=== PATIENT | male | born 1940 | race Caucasian/White ===

== ENCOUNTER 2020-03-21 16:06 | Emergency (ER) | payer MEDICARE, SELFPAY ==
[2020-03-21 16:08] VITALS: BMI 21.6
[2020-03-21 16:13] VITALS: BP 130/67; PULSE 72; RESP 16; TEMP 37.2; O2SAT 93
--- NOTE | 2020-03-21 16:22 | XR_ITS ---
WS: [id number] XR chest 1V portable [id number] REASON FOR EXAM: fever FINDINGS: There is now evidence of a stent in the region of the mitral valve. The heart is not enlarged. 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 Sternotomy findings are noted. The lung onofre are well aerated. XR/XR chest 1V portable [id number] IMPRESSION: Postoperative changes with a stent in the region of the mitral valve. Coronary bypass changes Arteriosclerotic changes
--- NOTE | 2020-03-21 16:23 | ECG_ITS ---
Measurements Intervals [place] Rate: 68 P: 9 MS: 245 QRS: 140 QRSD: 172 T: 43 QT: 490 QTc: 524 SINUS RHYTHM WITH FIRST DEGREE AV BLOCK LEFT ATRIAL ENLARGEMENT [-0.15mV P WAVE IN V1/V2] RIGHT AXIS DEVIATION [QRS AXIS > 100] RIGHT BUNDLE BRANCH BLOCK [120+ ms QRS DURATION, UPRIGHT V1, 40+ ms S IN I/ I/aVL/V4/V5/V6] No previous ECG available for comparison Electronically Signed On 03-22-2020 17:01:41 CDT by Chris Ann M.D. [id number] li
--- NOTE | 2020-03-21 16:23 | W.ED.GENADLT ---
Documented by User: Lyndon Treviño DO 03/21/20 16:26 HPI - General Adult General: Chief complaint: General Medical Stated complaint: HEAT EXHAUSTION Time Seen by Provider: 03/21/20 16:09 History of Present Illness: HPI narrative: Patient states that he believes he get too hot wall brush [place]. Symptoms first started when the patient was done yesterday. He states that when he finished he felt shaky and somewhat lightheaded. Patient fell findings warning so went out to brush hog in. Again when he finished he was shaky and off balance and severely weak. Patient did not drink much liquid yesterday or today. Onset (ago): day(s) (2) Review of Systems General: Reports: 10 or more systems reviewed and unremarkable except in HPI and below Neuro: Reports: weakness in extremities and dizziness PFS ED PFSH: Social History Smoking and tobacco status: never smoked Physical Exam Const: COMMON NORMALS: patient oriented x3 HENMT: COMMON NORMALS: normocephalic and atraumatic; oral mucous membranes not moist HEAD & SCALP: normocephalic and atraumatic Neck/C-Spine: COMMON NORMALS: full ROM, no meningeal signs and no JVD Resp: COMMON NORMALS: normal respiratory effort, No retractions, No use of accessory muscles and clear to auscultation bilaterally AUSCULTATION: clear to auscultation bilaterally Cardio: COMMON NORMALS: no JVD, regular rate and regular rhythm RATE: regular rate RHYTHM: regular rhythm GI: COMMON NORMALS: Normal to inspection, nondistended, normoactive bowel sounds present, Soft to palpation, non-tender, No hepatosplenomegaly present, no masses and no bruits PALPATION: Yes Soft to palpation and Yes No hepatosplenomegaly present Extremity: COMMON NORMALS: normal to inspection, full ROM, no joint enlargement, no clubbing, cyanosis or edema and no pedal edema Neuro: COMMON NORMALS: patient oriented x3 MENINGEAL SIGNS: Yes no meningeal signs Skin: COMMON NORMALS: no rashes or lesions noted, turgor normal, no jaundice and no mottling GENERAL SKIN EXAM: no rashes or lesions noted and turgor normal Course Vital Signs: Vital signs: Vital Signs Temperature 98.9 F 03/21/20 16:13 Pulse Rate 72 03/21/20 16:13 Respiratory Rate 16 03/21/20 16:13 Blood Pressure 130/67 03/21/20 16:13 Pulse Oximetry 93 03/21/20 16:13 [facility] - General Adult Lab Data: Labs: Lab Results 03/21/20 03/21/20 03/21/20 Range/Units 16:23 16:30 16:30 WBC 11.7 H (4.0-10.0) 10^3/ uL RBC 4.13 (4.1-5.3) 10^6/u L Hgb 13.8 (11.7-16.6) g/dL Hct 41.6 L (42.0-52.0) % MCV 100.7 H (80-94) fL MCH 33.4 (28.0-34.0) pg MCHC 33.2 (30.0-36.0) g/dL RDW 17.5 H (12.1-15.1) % Plt Count 141 (130-400) 10^3/c mm MPV 9.0 (7.4-10.4) fL Neut % (Auto) 72.5 % Lymph % (Auto) 6.0 % [place] % (Auto) 19.5 % Eos % (Auto) 0.3 % Baso % (Auto) 0.4 % Neut # (Auto) 8.4 H (1.8-7.7) 10^3/u L Lymph # (Auto) 0.7 L (0.8-4.8) 10^3/u L Tr[place]ble # (Auto) 2.3 H (0.2-0.9) 10^3/u L Eos # (Auto) 0.0 (0.0-0.8) 10^3/u L Baso # (Auto) 0.1 (0.0-0.1) 10^3/u L Nucleated RBC % (a uto) 0 % Nucleated RBCs # 0.0 /100WBC PT 16.10 H (10.5-13.3) SECO NDS INR 1.25 H (0.8-1.2) Sodium (136-145) mmol/L Potassium (3.5-5.1) mmol/L Chloride (98-107) mmol/L Carbon Dioxide (22-29) mmol/L Anion Gap (5-19) BUN (8-23) mg/dL Creatinine (0.7-1.2) mg/dL Glucose (65-115) mg/dL Calculated Osmolal ity (285-295) mOsm/k g Lactate (0.5-2.2) mmol/L Calcium (8.5-10.5) mg/dL Total Bilirubin (0.15-1.2) mg/dL AST (0-40) U/L ALT (0-41) U/L Alkaline Phosphata se (40-130) IU/L Creatine Kinase (39-308) U/L Troponin T Baselin e (0-15) ng/mL NT-Pro-B Natriuret Pep (0-450) pg/mL Total Protein (6.6-8.7) g/dL Albumin (3.5-5.2) g/dL Globulin (1.3-4.6) g/dL Urine Color Yellow (Yellow) Urine Appearance Clear (CLEAR) Urine pH 5 (5-7) Ur Specific Gravit y 1.010 (1.005-1.030) Urine Protein Neg (Negative) Urine Glucose (UA) Norm (Normal) Urine Ketones Negative (Negative) Urine Blood Neg (Negative) Urine Nitrate Negative (Negative) Urine Bilirubin Neg (NEGATIVE) Urine Urobilinogen 1 H (Negative) mg/dL Ur Leukocyte Yamilet ase Negative (Negative) 03/21/20 03/21/20 03/21/20 Range/Units 16:30 16:30 16:30 WBC (4.0-10.0) 10^3/ uL RBC (4.1-5.3) 10^6/u L Hgb (11.7-16.6) g/dL Hct (42.0-52.0) % MCV (80-94) fL MCH (28.0-34.0) pg MCHC (30.0-36.0) g/dL RDW (12.1-15.1) % Plt Count (130-400) 10^3/c mm MPV (7.4-10.4) fL Neut % (Auto) % Lymph % (Auto) % [place] % (Auto) % Eos % (Auto) % Baso % (Auto) % Neut # (Auto) (1.8-7.7) 10^3/u L Lymph # (Auto) (0.8-4.8) 10^3/u L Tr[place]ble # (Auto) (0.2-0.9) 10^3/u L Eos # (Auto) (0.0-0.8) 10^3/u L Baso # (Auto) (0.0-0.1) 10^3/u L Nucleated RBC % (a uto) % Nucleated RBCs # /100WBC PT (10.5-13.3) SECO NDS INR (0.8-1.2) Sodium 135 L (136-145) mmol/L Potassium 4.2 (3.5-5.1) mmol/L Chloride 96 L (98-107) mmol/L Carbon Dioxide 27 (22-29) mmol/L Anion Gap 16.2 (5-19) BUN 21 (8-23) mg/dL Creatinine 1.4 H (0.7-1.2) mg/dL Glucose 105 (65-115) mg/dL Calculated Osmolal ity 277 L (285-295) mOsm/k g Lactate 1.0 (0.5-2.2) mmol/L Calcium 9.1 (8.5-10.5) mg/dL Total Bilirubin 2.2 H (0.15-1.2) mg/dL AST 25 (0-40) U/L ALT 20 (0-41) U/L Alkaline Phosphata se 73 (40-130) IU/L Creatine Kinase 35 L (39-308) U/L Troponin T Baselin e 69 H (0-15) ng/mL NT-Pro-B Natriuret Pep 3153 H (0-450) pg/mL Total Protein 6.7 (6.6-8.7) g/dL Albumin 3.9 (3.5-5.2) g/dL Globulin 2.8 (1.3-4.6) g/dL Urine Color (Yellow) Urine Appearance (CLEAR) Urine pH (5-7) Ur Specific Gravit y (1.005-1.030) Urine Protein (Negative) Urine Glucose (UA) (Normal) Urine Ketones (Negative) Urine Blood (Negative) Urine Nitrate (Negative) Urine Bilirubin (NEGATIVE) Urine Urobilinogen (Negative) mg/dL Ur Leukocyte Yamilet ase (Negative) Discharge Plan Discharge Patient Disposition: Left Against Medical Advice Condition: Stable Prescriptions: No Action amiodarone 200 mg tablet 200 mg PO DAILY RF: 0 clopidogrel 75 mg Tablet 75 mg PO DAILY RF: 0 Fish Oil 300-1,000 mg Capsule,Delayed Release(Dr/Ec) 1 cap PO DAILY RF: 0 potassium chloride 20 mEq Tablet Extended Release 20 meq PO DAILY RF: 0 apple cider vinegar 500 mg Tablet 500 mg PO DAILY RF: 0 Discharge Orders: Discharge Order (Routine); Ordered 03/21/20 Ordered By: Roque Rose Referrals: Kati Negron LANDING WORKER [Primary Care Provider] - 4-7 days Patient Instructions: Weakness (ED) Activity Restrictions/Additional Instructions: Return immediately to the emergency department for dizziness, generalized weakness, chest discomfort, shortness of breath, other concerning symptoms. Coding Level of Care Code ED Wedding Designer for Chg Fwd Exam Comprehensive Documented by User: Roque Rose DO 03/21/20 18:10 HPI - General Adult General: Chief complaint: General Medical Stated complaint: HEAT EXHAUSTION Time Seen by Provider: 03/21/20 16:09 [facility] ED PFSH: Social History Smoking and tobacco status: never smoked Course Vital Signs: Vital signs: Vital Signs Temperature 98.9 F 03/21/20 16:13 Pulse Rate 72 03/21/20 16:13 Respiratory Rate 16 03/21/20 16:13 Blood Pressure 130/67 03/21/20 16:13 Pulse Oximetry 93 03/21/20 16:13 MDM - General Adult MDM Narrative: Medical decision making narrative: 80-year-old gentleman checked out to me to by Dr. Andrews at shift change. He evidently had some shortness of breath and generalized weakness following brush talking today. His symptoms are resolved now. He states he is feeling better all the time. He asked to go home. On review of his laboratory, his first troponin is mildly elevated, and his BNP is elevated as well. This patient has a history of valvular heart disease, with a valve place at [facility] in October. He does not have a history of coronary disease however. His chest x-ray does not show overt failure. His symptoms are improved, and he is asking to go home. I discussed observation admission with the patient, and to follow his troponins because of his history. He states that he would rather go home. He is going to sign a AMA form. Lab Data: Labs: Lab Results 03/21/20 03/21/20 03/21/20 Range/Units 16:23 16:30 16:30 WBC 11.7 H (4.0-10.0) 10^3/ uL RBC 4.13 (4.1-5.3) 10^6/u L Hgb 13.8 (11.7-16.6) g/dL Hct 41.6 L (42.0-52.0) % MCV 100.7 H (80-94) fL MCH 33.4 (28.0-34.0) pg MCHC 33.2 (30.0-36.0) g/dL RDW 17.5 H (12.1-15.1) % Plt Count 141 (130-400) 10^3/c mm MPV 9.0 (7.4-10.4) fL Neut % (Auto) 72.5 % Lymph % (Auto) 6.0 % [place] % (Auto) 19.5 % Eos % (Auto) 0.3 % Baso % (Auto) 0.4 % Neut # (Auto) 8.4 H (1.8-7.7) 10^3/u L Lymph # (Auto) 0.7 L (0.8-4.8) 10^3/u L Tr[place]ble # (Auto) 2.3 H (0.2-0.9) 10^3/u L Eos # (Auto) 0.0 (0.0-0.8) 10^3/u L Baso # (Auto) 0.1 (0.0-0.1) 10^3/u L Nucleated RBC % (a uto) 0 % Nucleated RBCs # 0.0 /100WBC PT 16.10 H (10.5-13.3) SECO NDS INR 1.25 H (0.8-1.2) Sodium (136-145) mmol/L Potassium (3.5-5.1) mmol/L Chloride (98-107) mmol/L Carbon Dioxide (22-29) mmol/L Anion Gap (5-19) BUN (8-23) mg/dL Creatinine (0.7-1.2) mg/dL Glucose (65-115) mg/dL Calculated Osmolal ity (285-295) mOsm/k g Lactate (0.5-2.2) mmol/L Calcium (8.5-10.5) mg/dL Total Bilirubin (0.15-1.2) mg/dL AST (0-40) U/L ALT (0-41) U/L Alkaline Phosphata se (40-130) IU/L Creatine Kinase (39-308) U/L Troponin T Baselin e (0-15) ng/mL NT-Pro-B Natriuret Pep (0-450) pg/mL Total Protein (6.6-8.7) g/dL Albumin (3.5-5.2) g/dL Globulin (1.3-4.6) g/dL Urine Color Yellow (Yellow) Urine Appearance Clear (CLEAR) Urine pH 5 (5-7) Ur Specific Gravit y 1.010 (1.005-1.030) Urine Protein Neg (Negative) Urine Glucose (UA) Norm (Normal) Urine Ketones Negative (Negative) Urine Blood Neg (Negative) Urine Nitrate Negative (Negative) Urine Bilirubin Neg (NEGATIVE) Urine Urobilinogen 1 H (Negative) mg/dL Ur Leukocyte Yamilet ase Negative (Negative) 03/21/20 03/21/20 03/21/20 Range/Units 16:30 16:30 16:30 WBC (4.0-10.0) 10^3/ uL RBC (4.1-5.3) 10^6/u L Hgb (11.7-16.6) g/dL Hct (42.0-52.0) % MCV (80-94) fL MCH (28.0-34.0) pg MCHC (30.0-36.0) g/dL RDW (12.1-15.1) % Plt Count (130-400) 10^3/c mm MPV (7.4-10.4) fL Neut % (Auto) % Lymph % (Auto) % [place] % (Auto) % Eos % (Auto) % Baso % (Auto) % Neut # (Auto) (1.8-7.7) 10^3/u L Lymph # (Auto) (0.8-4.8) 10^3/u L Tr[place]ble # (Auto) (0.2-0.9) 10^3/u L Eos # (Auto) (0.0-0.8) 10^3/u L Baso # (Auto) (0.0-0.1) 10^3/u L Nucleated RBC % (a uto) % Nucleated RBCs # /100WBC PT (10.5-13.3) SECO NDS INR (0.8-1.2) Sodium 135 L (136-145) mmol/L Potassium 4.2 (3.5-5.1) mmol/L Chloride 96 L (98-107) mmol/L Carbon Dioxide 27 (22-29) mmol/L Anion Gap 16.2 (5-19) BUN 21 (8-23) mg/dL Creatinine 1.4 H (0.7-1.2) mg/dL Glucose 105 (65-115) mg/dL Calculated Osmolal ity 277 L (285-295) mOsm/k g Lactate 1.0 (0.5-2.2) mmol/L Calcium 9.1 (8.5-10.5) mg/dL Total Bilirubin 2.2 H (0.15-1.2) mg/dL AST 25 (0-40) U/L ALT 20 (0-41) U/L Alkaline Phosphata se 73 (40-130) IU/L Creatine Kinase 35 L (39-308) U/L Troponin T Baselin e 69 H (0-15) ng/mL NT-Pro-B Natriuret Pep 3153 H (0-450) pg/mL Total Protein 6.7 (6.6-8.7) g/dL Albumin 3.9 (3.5-5.2) g/dL Globulin 2.8 (1.3-4.6) g/dL Urine Color (Yellow) Urine Appearance (CLEAR) Urine pH (5-7) Ur Specific Gravit y (1.005-1.030) Urine Protein (Negative) Urine Glucose (UA) (Normal) Urine Ketones (Negative) Urine Blood (Negative) Urine Nitrate (Negative) Urine Bilirubin (NEGATIVE) Urine Urobilinogen (Negative) mg/dL Ur Leukocyte Yamilet ase (Negative) Discharge Plan Discharge Patient Disposition: Left Against Medical Advice Condition: Stable Prescriptions: No Action amiodarone 200 mg tablet 200 mg PO DAILY RF: 0 clopidogrel 75 mg Tablet 75 mg PO DAILY RF: 0 Fish Oil 300-1,000 mg Capsule,Delayed Release(Dr/Ec) 1 cap PO DAILY RF: 0 potassium chloride 20 mEq Tablet Extended Release 20 meq PO DAILY RF: 0 apple cider vinegar 500 mg Tablet 500 mg PO DAILY RF: 0 Discharge Orders: Discharge Order (Routine); Ordered 03/21/20 Ordered By: Roque Rose Referrals: Kati Negron NP [Primary Care Provider] - 4-7 days Patient Instructions: Weakness (ED) Activity Restrictions/Additional Instructions: Return immediately to the emergency department for dizziness, generalized weakness, chest discomfort, shortness of breath, other concerning symptoms. Coding Level of Care Code ED Wedding Designer for Yousif Fwd Exam Comprehensive
[2020-03-21] MEDS: sodium chloride 0.9% 1,000 ML 999 ML IV (16:35)
[2020-03-21 16:42] LABS: Basophils # 0.1 10^3/uL (0.0-0.1); Basophils % 0.4 %; Eosinophils % 0.3 %; Hematocrit 41.6 % (42.0-52.0); Hemoglobin 13.8 g/dL (11.7-16.6); Lymphocytes # 0.7 10^3/uL (0.8-4.8); Mean Corpuscular HGB Conc 33.2 g/dL (30.0-36.0); Mean Corpuscular Hemoglobin 33.4 pg (28.0-34.0); Mean Corpuscular Volume 100.7 fL (80-94); Monocytes # 2.3 10^3/uL (0.2-0.9); Monocytes % 19.5 %; Neutrophils # 8.4 10^3/uL (1.8-7.7); Neutrophils % 72.5 %; Nucleated Red Blood Cells % 0 %; Platelet Count 141 10^3/cmm (130-400); Red Blood Count 4.13 10^6/uL (4.1-5.3); Red Cell Distribution Width 17.5 % (12.1-15.1); White Blood Count 11.7 10^3/uL (4.0-10.0)
[2020-03-21 16:43] LABS: Add Urine Microscopic? NO
[2020-03-21 16:49] LABS: Bilirubin Urine Neg (NEGATIVE); Blood Urine Neg (Negative); Glucose Urine UA Norm (Normal); Ketones Urine Negative (Negative); Leukocyte Esterase Urine Negative (Negative); Nitrate Urine Negative (Negative); Protein Urine Neg (Negative); Urine Appearance Clear (CLEAR); Urine Color Yellow (Yellow); Urobilinogen Urine 1 mg/dL (Negative); pH Urine 5 (5-7)
[2020-03-21 16:51] LABS: INR 1.25 (0.8-1.2)
[2020-03-21 17:03] LABS: Troponin(5th) Baseline 69 ng/mL (0-15)
[2020-03-21 17:13] LABS: Alanine Aminotransferase 20 U/L (0-41); Albumin Level 3.9 g/dL (3.5-5.2); Alkaline Phosphatase 73 IU/L (40-130); Anion Gap 16.2 (5-19); Aspartate Amino Transferase 25 U/L (0-40); Blood Urea Nitrogen 21 mg/dL (8-23); Calcium 9.1 mg/dL (8.5-10.5); Carbon Dioxide 27 mmol/L (22-29); Chloride 96 mmol/L (98-107); Creatine Phosphokinase 35 U/L (39-308); Globulin 2.8 g/dL (1.3-4.6); Glucose 105 mg/dL (65-115); NT Pro B Type Natriuretic Pept 3153 pg/mL (0-450); Osmolality Calculated 277 mOsm/kg (285-295); Potassium 4.2 mmol/L (3.5-5.1); Sodium 135 mmol/L (136-145); Total Bilirubin 2.2 mg/dL (0.15-1.2); Total Protein 6.7 g/dL (6.6-8.7)
[2020-03-21 18:14] VITALS: BP 131/79; PULSE 71; RESP 18; O2SAT 95
--- NOTE | 2020-03-22 16:45 | ECG_ITS ---
Measurements Intervals [place] Rate: 68 P: 9 [place]: 245 QRS: 140 QRSD: 172 T: 43 QT: 490 QTc: 524 SINUS RHYTHM WITH FIRST DEGREE AV BLOCK LEFT ATRIAL ENLARGEMENT [-0.15mV P WAVE IN V1/V2] RIGHT AXIS DEVIATION [QRS AXIS > 100] RIGHT BUNDLE BRANCH BLOCK [120+ ms QRS DURATION, UPRIGHT V1, 40+ ms S IN I/ I/aVL/V4/V5/V6] No previous ECG available for comparison Electronically Signed On 03-22-2020 17:06:18 CDT by Chris Ann M.D. [email or web address] li
== END 2020-03-21 18:14 | disposition left against medical advice (07) ==
PROVIDERS: Family Medicine; Emergency Provider Emergency Medicine; PCP Nurse Practitioner
DX: T67.5XXA Heat exhaustion, unspecified, initial encounter (principal); X30.XXXA Exposure to excessive natural heat, initial encounter; Z79.02 Long term (current) use of antithrombotics/antiplatelets; Z53.21 Procedure and treatment not carried out due to patient leaving prior to being seen by health care provider
CPT/HCPCS: 12345; 36415; 71045; 80053; 81003; 82550; 83605; 83880; 84484; 85025; 85610; 87040; 93005; 96360; 99283; J7030

== ENCOUNTER 2021-07-26 06:19 | Outpatient (CLI) | payer MEDICARE, SELFPAY ==
--- NOTE | 2021-07-26 | USCV_ITS ---
Elie Mccormick Age: 81 Gender: M : 1940 Exam Date: 07/26/2021 06:38 Ordering Phys: Taisha Dwyer MD Technologist: Lizabeth Larson Exam Location: [facility] Indication: AAA SCREENING HISTORY: Diameter (cm) AP x Transverse x Length Velocity (cm/s) Waveform Prox Aorta: 1.90 x 2.17 x 90.10 Mid Aorta: 1.67 x 1.91 x 86.40 Distal Aorta: 1.71 x 1.96 x 128.10 Right Iliac Prox: 1.05 x 0.93 x 95.00 Left Iliac Prox: 1.08 x 0.95 x 75.20 Stent Prox Landing x x Aneurysmal Sac Max x x Lt Lat Sac Dim Rt Lat Sac Dim Stent Dist Landing x x Right Iliac Stent x x Left Iliac Stent x x Right Renal Art Left Renal Art FINDINGS: Mild to moderate diffuse dense plaques in the abdominal aorta Minimal plaques in the proximal common iliac arteries bilaterally Normal abdominal aortic and proximal common iliac artery dimensions CONCLUSIONS 1. Normal abdominal aortic and proximal common iliac artery dimensions with no evidence of aneurysm. 2. Mild to moderate diffuse dense plaques in the abdominal aorta. 3. No evidence of any significant stenosis in the abdominal aorta or the proximal common iliac arteries, based on the above findings. 4. No similar previous studies are available for comparison Dr Ralph Da Silva MD [facility] (Electronically Signed) Final Date: 27 July 2021 10:15 S
== END 2021-07-26 06:20 | disposition home or self-care (01) ==
LOC: US 06:22
PROVIDERS: PCP Family Medicine; Visit Provider Family Medicine
DX: Z13.6 Encounter for screening for cardiovascular disorders (principal); I35.0 Nonrheumatic aortic (valve) stenosis
CPT/HCPCS: 76706

== ENCOUNTER 2022-12-08 13:15 | Outpatient (CLI) | payer MEDICARE, SELFPAY ==
--- NOTE | 2022-12-08 13:46 | XR_ITS ---
WS: [id number] Chest with right rib detail, 3 views, 12/08/2022 Clinical Data: PLEURODYNIA Comparison: Portable chest, 03/21/2020 Findings: The lungs show no nodules, masses, or effusions. The heart is slightly enlarged. No pneumonia or pneu mothorax is seen. There are midline sternotomy sutures, mediastinal clips and an artificial cardiac valve. XR/XR ribs RT mn 3V w CXR1V [id number] Impression: 1. Cardiomegaly. 2. Negative right rib detail.
== END 2022-12-08 13:16 | disposition home or self-care (01) ==
LOC: RAD 13:22
PROVIDERS: PCP Family Medicine; Visit Provider Family Medicine
DX: R07.81 Pleurodynia (principal); I51.7 Cardiomegaly
CPT/HCPCS: 71101

== ENCOUNTER 2022-12-27 06:00 | Outpatient (RCR) | payer MEDICARE, SELFPAY | END 2023-01-19 23:59 | disposition home or self-care (01) | LOC: MOT 06:00 | PROVIDERS: Visit Provider Family Medicine | DX: I87.8 Other specified disorders of veins (principal); I89.0 Lymphedema, not elsewhere classified | CPT/HCPCS: 97140; 97166 ==

== ENCOUNTER 2023-01-20 06:00 | Outpatient (RCR) | payer MEDICARE, SELFPAY | END 2023-02-18 23:59 | disposition home or self-care (01) | LOC: MOT 06:00 | PROVIDERS: Visit Provider Family Medicine | DX: I89.0 Lymphedema, not elsewhere classified (principal); I87.8 Other specified disorders of veins | CPT/HCPCS: 97140 ==

== ENCOUNTER 2023-04-07 11:05 | Outpatient (CLI) | payer MEDICARE, SELFPAY ==
[2023-04-07 11:37] LABS: Basophils # 0.1 10^3/uL (0.0-0.1); Basophils % 0.9 %; Eosinophils # 0.3 10^3/uL (0.0-0.8); Eosinophils % 4.5 %; Hematocrit 42.2 % (42.0-52.0); Hemoglobin 13.4 g/dL (11.7-16.6); Lymphocytes # 0.6 10^3/uL (0.8-4.8); Lymphocytes % 9.1 %; Mean Corpuscular HGB Conc 31.8 g/dL (30.0-36.0); Mean Corpuscular Hemoglobin 32.6 pg (28.0-34.0); Mean Corpuscular Volume 102.7 fl (80-94); Mean Platelet Volume 9.2 fL (7.4-10.4); Monocytes # 0.9 10^3/uL (0.2-0.9); Monocytes % 14.1 %; Neutrophils # 4.48 10^3/uL (1.8-7.7); Neutrophils % 70.1 %; Nucleated Red Blood Cells % 0 %; Platelet Count 184 10^3/cmm (130-400); Red Blood Count 4.11 10^6/uL (4.1-5.3); Red Cell Distribution Width 17.9 % (12.1-15.1); White Blood Count 6.4 10^3/uL (4.0-10.0)
[2023-04-07 12:01] LABS: Alanine Aminotransferase 17 U/L (0-41); Albumin Level 3.4 g/dL (3.5-5.2); Alkaline Phosphatase 142 U/L (40-130); Anion Gap 13.2 (5-19); Aspartate Amino Transferase 25 U/L (0-40); Blood Urea Nitrogen 18 mg/dL (8-23); Calcium 8.7 mg/dL (8.5-10.5); Carbon Dioxide 28 mmol/L (22-29); Chloride 103 mmol/L (98-107); Globulin 3.1 g/dL (1.3-4.6); Glucose 80 mg/dL (65-115); Osmolality Calculated 291 mOsm/kg (285-295); Potassium 4.2 mmol/L (3.5-5.1); Sodium 140 mmol/L (136-145); Total Bilirubin 1.2 mg/dL (0.15-1.2); Total Protein 6.5 g/dL (6.6-8.7)
== END 2023-04-07 11:06 | disposition home or self-care (01) ==
PROVIDERS: Visit Provider Student in an Organized Health Care Education/Training Program
DX: Z01.89 Encounter for other specified special examinations (principal)
CPT/HCPCS: 80053; 85025